=== PATIENT | female | born 1975 | race Two or more races ===

== ENCOUNTER 2018-04-03 00:48 | Emergency (ER) | payer OTHER ==
[~2018-04-03] VITALS: Ht 160 cm; Wt 61.2 kg
[~2018-04-03 00:48] MED LIST: SYNTHROID50 MCG; TRAMADOL HCL-AP1 TAB PO; WELLBUTRIN75 MG
[2018-04-03] MEDS ORDERED: VISTARIL50 MG PO (04:10)
== END 2018-04-03 04:30 ==
LOC: ER 00:48
DX: R00.2 Palpitations (principal)